=== PATIENT | female | born 1935 | race Caucasian/White ===

== ENCOUNTER → 2017-07-24 18:56 | Outpatient (CLI) | payer MEDICARE, BC | END | disposition home or self-care (01) | LOC: D.SLEEP 07-13 20:00 | DX: G73.3 Myasthenic syndromes in other diseases classified elsewhere (principal) ==

== ENCOUNTER 2019-06-17 16:12 | Emergency (ER) | payer MEDICARE, BC ==
[~2019-06-17] VITALS: Ht 165.1 cm; Wt 72.7 kg
[2019-06-17 16:18] VITALS: Ht 165.1 cm; Wt 72.7 kg
[2019-06-17] MEDS ORDERED: AVAPRO75 MG PO (16:20)
[2019-06-17] MEDS ORDERED: CELEXA20 MG PO (16:21)
[2019-06-17] MEDS ORDERED: DILT-XR240 MG PO (16:21)
[2019-06-17] MEDS ORDERED: CARAFATE1 G PO (16:22)
[2019-06-17] MEDS ORDERED: OMEPRAZOLE40 MG PO (16:22)
[2019-06-17] MEDS ORDERED: LIPITOR40 MG PO (16:22)
[2019-06-17] MEDS ORDERED: VITAMIN B-121000 MCG PO (16:23)
[2019-06-17] MEDS ORDERED: FLUTICASONE PRO16 GM NASAL (16:23)
[2019-06-17] MEDS ORDERED: OS-CAL500 MG PO (16:24)
[2019-06-17] MEDS ORDERED: AVAPRO150 MG PO (16:24)
[2019-06-17 16:47] LABS: BASOPHILS 0.3 % (0-2); EOSINOPHILS 1.9 % (0-7); HEMATOCRIT 33.5 % (36.0-48.0); HEMOGLOBIN 11.4 g/dL (12-16); IMMATURE GRANULOCYTES 0.1 % (0-5); LYMPHOCYTES 22.3 % (15-50); MCH 28.4 pg (26.0-34.0); MCV 83.3 fL (80.0-100.0); MEAN PLATELET VOLUME 9.5 fL (7.4-10.4); MONOCYTES 8.4 % (2-11); PLATELET COUNT 226 10x3/uL (130-400); RBC 4.02 10x6/uL (4.00-5.40); RDW 13.4 % (11.5-14.5); WBC 7.3 10x3/uL (4.8-10.8)
[2019-06-17 17:30] LABS: ALBUMIN 3.1 g/dL (3.4-5.0); BILIRUBIN - TOTAL 0.23 mg/dL (0.2-1.3); CALCIUM 8.6 mg/dL (8.5-10.1); CREATININE - SERUM 0.9 mg/dL (0.6-1.3); PROTEIN - SERUM 6.6 g/dL (6.4-8.2)
[2019-06-17 18:12] LABS: CKMB 0.9 U/L (0.0-3.6); CREATINE KINASE 84 UL (21-215); TROPONIN-I < 0.017 ng/mL (0.000-0.060)
[2019-06-17] MEDS ORDERED: TOPROL XL50 MG PO (19:13)
[2019-06-17 19:28] VITALS: BP 193/93
== END 2019-06-17 19:29 | disposition home or self-care (01) ==
LOC: D.ER 16:12
PROVIDERS: Family Medicine
DX: R06.00 Dyspnea, unspecified (principal); I48.91 Unspecified atrial fibrillation

== ENCOUNTER → 2019-07-16 10:01 | Outpatient (CLI) | payer MEDICARE, BC ==
[2019-06-17 16:18] VITALS: BMI 26.6
[~2019-07-16 10:01] MED LIST: AVAPRO150 MG PO; AVAPRO75 MG PO; CARAFATE1 G PO; CELEXA20 MG PO; DILT-XR240 MG PO; FLUTICASONE PRO16 GM NASAL; LIPITOR40 MG PO; OMEPRAZOLE40 MG PO; OS-CAL500 MG PO; TOPROL XL50 MG PO; VITAMIN B-121000 MCG PO
== END | disposition home or self-care (01) ==
LOC: D.RT 04-23 10:00 → D.RAD 04-23 11:00 → D.RT 10:01
PROVIDERS: ATTEND Internal Medicine Pulmonary Disease
DX: R06.00 Dyspnea, unspecified (principal)

== ENCOUNTER → 2021-01-13 09:07 | Outpatient (CLI) | payer MEDICARE, BC ==
[2019-06-17 16:18] VITALS: BMI 26.6
== END | disposition home or self-care (01) ==
LOC: D.HCCECHO 09:07
PROVIDERS: ATTEND Internal Medicine Cardiovascular Disease
DX: I34.0 Nonrheumatic mitral (valve) insufficiency (principal)